=== PATIENT | male | born 1975 | race Caucasian/White ===

== ENCOUNTER 2020-11-24 11:31 | Outpatient (CLI) | payer BC, SELFPAY | END 2020-11-24 11:32 | disposition home or self-care (01) | LOC: ANHCOVIDVC 11:31 | PROVIDERS: PCP Internal Medicine | DX: Z23 Encounter for immunization (principal) | CPT/HCPCS: 0001A; 91300 ==

== ENCOUNTER 2020-12-15 11:33 | Outpatient (CLI) | payer BC, SELFPAY | END 2020-12-15 11:34 | disposition home or self-care (01) | LOC: ANHCOVIDVC 11:33 | PROVIDERS: PCP Internal Medicine | DX: Z23 Encounter for immunization (principal) | CPT/HCPCS: 0002A; 91300 ==

== ENCOUNTER → 2021-10-04 09:27 | Outpatient (CLI) | payer BC, SELFPAY ==
[2021-10-04 13:26] LABS: Influenza A QL RT-PCR Negative (Negative); Influenza B QL RT-PCR Negative (Negative); SARS-CoV-2 RNA PCR Negative
== END ==
PROVIDERS: PCP Internal Medicine; Visit Provider Internal Medicine
DX: R68.89 Other general symptoms and signs (principal); Z20.822 Contact with and (suspected) exposure to COVID-19
CPT/HCPCS: 87502; C9803; U0003; U0005

== ENCOUNTER 2021-10-06 18:35 | Emergency (ER) | payer BC, SELFPAY ==
[2021-10-06 18:44] VITALS: BP 178/97; PULSE 76; RESP 16; TEMP 37.1
--- NOTE | 2021-10-06 18:48 | ED.GENADULT ---
HPI - General Adult General Chief complaint: Eye Problems Stated complaint: Swollen Eye Source: patient Mode of arrival: ambulatory Limitations: no limitations History of Present Illness HPI narrative: 46-year-old male presented for complaint of swelling to the right eye. He endorses sinus infection symptoms for 1 week, for which she called his primary care provider 3 days ago and started amoxicillin. He states the right eye swelling started prior to taking the antibiotic and the rash to the right forehead also started prior to the antibiotic. He endorses mild itching. Denies eye pain. 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 He was seen by an eye doctor just prior to arrival, states no foreign body, no apparent shingles, no conjunctivitis. No new medications were prescribed. Taking Tylenol for headache. Denies changes to medication, soap, detergent, lotion, shampoo etc. History of hypertension, aortic valve replacement. Fully vaccinated for Covid and influenza. Related Data Home Medications Medication Instructions Recorded Confirmed aspirin 81 mg tablet,delayed 81 mg PO DAILY 09/20/19 10/06/21 release atorvastatin 20 mg tablet 20 mg PO DAILY 09/20/19 10/06/21 losartan 25 mg tablet 25 mg PO DAILY 09/20/19 10/06/21 metoprolol tartrate 75 mg tablet 75 mg PO Q12H 09/20/19 10/06/21 multivitamin 1 tablet PO DAILY 09/20/19 10/06/21 warfarin 2 mg tablet 5 mg PO DAILY tablet 09/24/19 10/06/21 melatonin 5 mg capsule 10 mg PO HS cap 09/17/20 10/06/21 Allergies Allergy/AdvReac Type Severity Reaction Status Date / Time bee venom protein (honey bee) Allergy Unknown swollen Verified 09/17/20 08:08 Review of Systems Review of Systems: CONSTITUTIONAL: Denies body aches, fever, chills, or sweats. EYES:Endorses right eye swelling, denies redness or pain, FB sensation, photophobia, legally blind ENT: Denies rhinorrhea, congestion, sore throat, or otalgia. CARDIOVASCULAR: Denies chest pain, palpitations, or edema. RESPIRATORY: Denies cough or dyspnea. GASTROINTESTINAL: Denies abdominal pain, nausea, vomiting, or diarrhea. GENITOURINARY: Denies dysuria or hematuria. SKIN: endorses rash, itching MUSCULOSKELETAL: Denies back pain, joint pain, or myalgia. NEUROLOGIC: Denies headache, numbness, tingling, or weakness. PSYCH: Denies depression or anxiety. All systems reviewed & are unremarkable except as noted in HPI and below PMFSH Family History Family History Mother Family history of diabetes mellitus in first degree relative Family history of thyroid disease Diabetes mellitus Family history of obesity Grandparent Family history of heart disease in male family member before age 55 Father Hypertension Other Family history of lymphoma Social History Social History Smoking status: Never smoker Alcohol intake: current Comments At time of signature, I have reviewed and agree with nursing past medical, surgical, social and family history unless otherwise noted. Please see nursing chart for further information. There is no relevant family history pertinent to the presenting complaint Exam Narrative: GENERAL: Well-appearing, and in no acute distress. HEAD: Normocephalic, atraumatic. EYES: severe periorbital edema to right eye, swollen shut; no conjunctival injection, EOMI. unable to perform Lid eversion due to edema, no apparent FB right eye ENT: Mucous membranes pink and moist. No rhinorrhea. TMs normal bilaterally, right canal mild stenosis. Throat normal. Uvula midline. NECK: Normal AROM. Supple. No lymphadenopathy. CHEST: No respiratory distress. Clear to auscultation. HEART: Regular rate and rhythm. Audible click 2/2 mechanical aortic valve. No murmur appreciated. Normal peripheral pulses. ABDOMEN: Soft, nontender, nondistended, normal active bowel sounds. MUSCULOSKELETAL: No bony tendernes
[2021-10-06] MEDS: methylPREDNISolone SOD SUCC 125 MG VIAL IM (19:06)
[2021-10-06] MEDS: diphenhydrAMINE HCl INJ 50 MG/ML VIAL IM (19:06)
== END 2021-10-06 19:28 | disposition home or self-care (01) ==
PROVIDERS: Emergency Provider Nurse Practitioner Family; PCP Internal Medicine
DX: L30.9 Dermatitis, unspecified (principal); H05.221 Edema of right orbit; I10 Essential (primary) hypertension; Z95.2 Presence of prosthetic heart valve; Z79.82 Long term (current) use of aspirin; Z79.01 Long term (current) use of anticoagulants
CPT/HCPCS: 96372; 99214; G0463; J1200; J2930

== ENCOUNTER 2021-10-08 16:34 | Emergency (ER) | payer BC, SELFPAY ==
[2021-10-08 16:44] VITALS: BP 163/85; PULSE 89; RESP 16; TEMP 37; O2SAT 97
--- NOTE | 2021-10-08 16:52 | ED.GENADULT ---
HPI - General Adult General Chief complaint: Eye Problems Stated complaint: Facial Rash Source: patient Mode of arrival: ambulatory Limitations: no limitations History of Present Illness HPI narrative: 46-year-old male presented for complaint of rash to right forehead and swelling to eye, onset 5 days. Denies significant pain to the site. He has been taking amoxicillin from PCP for sinus infection, and steroids as prescribed 2 days ago from the [facility]. He endorses no improvement in symptoms. He states the sx started prior to taking the antibiotic He endorses mild itching. Denies eye pain. Legally blind right eye. Pt had been seen by eye doc prior to visit 2 days ago, no foreign body, no apparent shingles, no conjunctivitis per their report to pt. Related Data Home Medications Medication Instructions Recorded Confirmed aspirin 81 mg tablet,delayed 81 mg PO DAILY 09/20/19 10/06/21 release atorvastatin 20 mg tablet 20 mg PO DAILY 09/20/19 10/06/21 losartan 25 mg tablet 25 mg PO DAILY 09/20/19 10/06/21 metoprolol tartrate 75 mg tablet 75 mg PO Q12H 09/20/19 10/06/21 multivitamin 1 tablet PO DAILY 09/20/19 10/06/21 warfarin 2 mg tablet 5 mg PO DAILY tablet 09/24/19 10/06/21 melatonin 5 mg capsule 10 mg PO HS cap 09/17/20 10/06/21 Allergies Allergy/AdvReac Type Severity Reaction Status Date / Time bee venom protein (honey bee) Allergy Unknown swollen Verified 10/08/21 17:16 Review of Systems Review of Systems: CONSTITUTIONAL: Denies body aches, fever, chills, or sweats. EYES: Denies visual changes, redness, or discharge. ENT: right eye swelling; Denies rhinorrhea, congestion, sore throat, or otalgia. CARDIOVASCULAR: Denies chest pain, palpitations, or edema. RESPIRATORY: Denies cough or dyspnea. GASTROINTESTINAL: Denies abdominal pain, nausea, vomiting, or diarrhea. GENITOURINARY: Denies dysuria or hematuria. SKIN: Endorses rash, itching MUSCULOSKELETAL: Denies back pain, joint pain, or myalgia. NEUROLOGIC: Denies headache, numbness, tingling, or weakness. PSYCH: Denies depression or anxiety. All systems reviewed & are unremarkable except as noted in HPI and below PMFSH Family History Family History Mother Family history of diabetes mellitus in first degree relative Family history of thyroid disease Diabetes mellitus Family history of obesity Grandparent Family history of heart disease in male family member before age 55 Father Hypertension Other Family history of lymphoma Social History Social History Smoking status: Never smoker Alcohol intake: current Comments At time of signature, I have reviewed and agree with nursing past medical, surgical, social and family history unless otherwise noted. Please see nursing chart for further information. There is no relevant family history pertinent to the presenting complaint Exam Narrative: GENERAL: Well-appearing, well-nourished, and in no acute distress. HEAD: Normocephalic, atraumatic. EYES: EOMI. Right eye severe swelling, slight improvement in 2 days, but swollen shut, no drainage ENT: Mucous membranes pink and moist. No rhinorrhea. NECK: Normal AROM. Supple. No lymphadenopathy. CHEST: No respiratory distress. Clear to auscultation. HEART: Regular rate and rhythm. No murmur appreciated. Normal peripheral pulses. ABDOMEN: Soft, nontender, nondistended, normal active bowel sounds. MUSCULOSKELETAL: No bony tenderness. EXTREMITIES: Normal range of motion. No edema. SKIN: Erythematous papules to right forehead and eyebrow, and scalp with surrounding erythema, no drainage, nontender, Warm, dry, Normal skin turgor. NEURO: No focal deficits. Alert and oriented x3. Gait steady. PSYCH: Normal affect. No signs of depression or anxiety. Course Course Emergency Course: Patient is aware of diagnosis, understands and agrees to tr
== END 2021-10-08 17:23 | disposition home or self-care (01) ==
PROVIDERS: Emergency Provider Nurse Practitioner Family; PCP Internal Medicine
DX: L03.213 Periorbital cellulitis (principal); B02.30 Zoster ocular disease, unspecified; E78.00 Pure hypercholesterolemia, unspecified; I10 Essential (primary) hypertension; H54.61 Unqualified visual loss, right eye, normal vision left eye
CPT/HCPCS: 99213; G0463

== ENCOUNTER 2022-11-02 17:29 | Emergency (ER) | payer BC, SELFPAY ==
--- NOTE | 2022-11-02 17:31 | ED.EAR ---
HPI - Ear Problem General Chief complaint: Ear Stated complaint: L EARACHE Time Seen by Provider: 11/02/22 17:31 Source: patient and RN notes reviewed History of Present Illness HPI Narrative: Patient is a 47-year-old male who presents to urgent care with complaints of left earache since Monday. Patient states that he has been on doxycycline for the last 2 months for a skin condition. States that he has a history of endocarditis and ?wants to make sure he does not have an infection?. Patient states that he had a dental procedure yesterday and took a loading dose of 2 g of amoxicillin. Denies any drainage from the ear or other upper respiratory complaints. Patient is otherwise not taken anything [id number] for symptoms. No other acute complaints. No acute distress noted. Patient aware of the plan of care. Some parts of this dictation were generated by voice recognition software and may contain typographical and/or grammatical inaccuracies. Related Data Home Medications Medication Instructions Recorded Confirmed aspirin 81 mg tablet,delayed 81 mg PO DAILY 09/20/19 10/19/21 release (Adult Low Dose Aspirin) atorvastatin 20 mg tablet 20 mg PO DAILY 09/20/19 10/19/21 losartan 25 mg tablet 25 mg PO DAILY 09/20/19 10/19/21 metoprolol tartrate 75 mg tablet 75 mg PO Q12H 09/20/19 10/19/21 multivitamin 1 tablet PO DAILY 09/20/19 10/19/21 warfarin 2 mg tablet 5 mg PO DAILY 09/24/19 10/19/21 melatonin 5 mg capsule 10 mg PO HS 09/17/20 10/08/21 Allergies Allergy/AdvReac Type Severity Reaction Status Date / Time bee venom protein (honey bee) Allergy Unknown swollen Verified 11/02/22 17:56 Review of Systems Review of Systems: CONSTITUTIONAL: Denies fever, chills, or sweats. EYES: Denies visual changes, redness, or discharge. ENT: Denies rhinorrhea, congestion, sore throat. Reports of left otalgia CARDIOVASCULAR: Denies chest pain, palpitations, or edema. RESPIRATORY: Denies cough or dyspnea. GASTROINTESTINAL: Denies abdominal pain, nausea, vomiting, or diarrhea. GENITOURINARY: Denies dysuria or hematuria. SKIN: Denies rash or itching. MUSCULOSKELETAL: Denies back pain, joint pain, or myalgia. NEUROLOGIC: Denies headache, numbness, or weakness. All other systems reviewed are negative, except as documented in HPI. [facility] Family History Family History Mother Family history of diabetes mellitus in first degree relative Family history of thyroid disease Diabetes mellitus Family history of obesity Grandparent Family history of heart disease in male family member before age 55 Father Hypertension Other Family history of lymphoma Social History Social History Smoking status: Never smoker Alcohol intake: current Alcohol use details: rarely Substance use: never Substance use type: does not use Comments At the time of my signature, I reviewed and agree with the nursing past medical, surgical, social, and family history. There is no relevant family history pertinent to the patient complaint. Exam Narrative: GENERAL: This is a well-nourished, well-developed patient, in no apparent distress. HEAD: normocephalic, atraumatic. EYES: PERRL. Sclera clear/white. Vision is grossly intact. EARS: External ears normal, auditory canals clear and without drainage, very mild eustachian tube dysfunction to the left with notable cerumen without impaction, bilateral TMs normal without perforation. Hearing grossly intact. NOSE: External nose normal with no obvious nasal discharge, nares without redness, no rhinorrhea. THROAT: Mucous membranes moist NECK: Neck supple SKIN: warm, intact with no suspicious lesions or rash, good texture and turgor. NEURO: awake, alert, and oriented to person, place and time. There were no obvious focal neurologic abnormalities. EXTREMITIES: No clubbing, cyanosis, or edema. Course Course L
[2022-11-02 17:41] VITALS: BP 129/87; PULSE 67; RESP 16; TEMP 36.4; O2SAT 98
== END 2022-11-02 18:00 | disposition home or self-care (01) ==
PROVIDERS: Emergency Provider Nurse Practitioner Family
DX: H92.02 Otalgia, left ear (principal); E78.00 Pure hypercholesterolemia, unspecified; I10 Essential (primary) hypertension
CPT/HCPCS: 99211; G0463